=== PATIENT | male | born 1935 | race Caucasian/White ===

== ENCOUNTER 2018-11-12 22:21 | Emergency (ER) | payer MEDICARE ==
[2018-11-12] MEDS ORDERED: Lidocaine 1% PF 5 ML VIAL ONE (22:44)
[2018-11-12] MEDS ORDERED: Silver Nitrate Application 1 EACH ONE (22:54)
--- NOTE | 2018-11-16 05:53 | PQF ---
[facility] POST DISCHARGE CLINICAL DOCUMENTATION IMPROVEMENT CLARIFICATION FORM l Todays Date: 11/15/18 l Patients Name Marcelo Garcia l l Admit Date 11/12/18 l Disch Date 11/12/18 Maintenance Mechanic Supervisor Name Immanuel Robertson Email: [email or web address] Cell: [phone] To be completed by Maintenance Mechanic Supervisor: Present Clinical Indicators - Signs / Symptoms Results and Location in Medical Record [ ] Documentation of: [ ] [ ] Documentation of: [ ] [ ] Documentation of: [ ] [ ] Documentation of: [ ] [ ] Risks [ ] [ ] [ ] Treatment [ ] Laceration Ear Please specify the length of Ear laceration repair [ ] [ ] To be completed by Physician: MD Ramos Darren The documentation in this patients record requires clarification to ensure coding compliance and accuracy. Check the appropriate box and include in your discharge summary. [ ] [ ] [ ] [ ] Please check this box if this does not apply to this patient [ ] Unable to determine [ ] Other diagnosis: Review the following information and exercise your independent professional judgment in responding to the clarification. Based upon the clinical findings, risk factors, and treatment, please clarify if you are treating one of the above probable or suspected diagnoses. Physician Signature: Date Time MTDD
== END 2018-11-12 23:38 | disposition home or self-care (01) ==
LOC: BURERS 22:21
DX: H61.891 Other specified disorders of right external ear (principal); I10 Essential (primary) hypertension; I49.9 Cardiac arrhythmia, unspecified; I48.91 Unspecified atrial fibrillation
CPT/HCPCS: 12001; J2001